=== PATIENT | female | born 1965 | race Two or more races ===

== ENCOUNTER 2018-07-05 13:41 | Emergency (ER) | payer OTHER ==
[~2018-07-05] VITALS: Ht 157.5 cm; Wt 73.3 kg
[~2018-07-05 13:41] MED LIST: LEVO50TA PO
[2018-07-05 13:54] VITALS: BP 175/80
== END 2018-07-05 15:15 | disposition home or self-care (01) ==
LOC: ED 15:09
DX: R10.30 Lower abdominal pain, unspecified (principal); I10 Essential (primary) hypertension; E03.9 Hypothyroidism, unspecified
CPT/HCPCS: 99281

== ENCOUNTER 2018-07-08 17:57 | Emergency (ER) | payer OTHER ==
[~2018-07-08] VITALS: Ht 157.5 cm; Wt 72.0 kg
[2018-07-08 18:02] VITALS: BP 186/79
== END 2018-07-08 18:43 | disposition home or self-care (01) ==
LOC: ED 18:14
DX: B02.9 Zoster without complications (principal)
CPT/HCPCS: 99283

== ENCOUNTER 2020-02-15 21:01 | Inpatient (IN) | payer OTHER ==
[~2020-02-15] VITALS: Ht 157.5 cm; Wt 77.3 kg
--- NOTE | 2020-02-15 21:30 | NUR ---
THIS IS A 54Y F THAT COMES IN TONIGHT FOR COUGH X5DAYS, DENIES FEVER CHILLS BODY ACHES. PT RA 02 SAT 88%, PT PLACED ON 2L NC, SATS UP TO 94%. JUSTIN.
--- NOTE | 2020-02-15 21:33 | NUR ---
PA AT BEDSIDE TO ASSESS PT AT THIS TIME
[2020-02-15] MEDS ORDERED: ACETAMINOPHEN 500 MG TABLET ONE (21:51)
--- NOTE | 2020-02-15 21:58 | NUR ---
PT MEDICATED PER JUSTIN FINK. LAB AT BEDSIDE AT THIS TIME
[2020-02-15] MEDS ORDERED: ACETAMINOPHEN 500 MG TABLET PO ONE (22:00)
[2020-02-15 22:29] LABS: BASOPHILS % (AUTO) 0 % (0-1); EOSINOPHILS % (AUTO) 0 % (1-7); LYMPHOCYTES # (AUTO) 1.22 x10^3/uL (1-3.4); LYMPHOCYTES % (AUTO) 12 % (22-44); MD NO; MEAN CORPUSCULAR HEMOGLOBIN 28.9 pg (27.0-34.8); MEAN CORPUSCULAR VOLUME 87.6 fL (80-100); MONOCYTES # (AUTO) 0.42 x10^3/uL (0.2-0.8); MONOCYTES % (AUTO) 4 % (2-9); NEUTROPHILS # (AUTO) 8.25 x10^3/uL (1.8-6.8); NEUTROPHILS % (AUTO) 83 % (42-75); PLATELET COUNT 305 x10^3/uL (130-400); RED BLOOD COUNT 4.92 x10^6/uL (3.82-5.3); RED CELL DISTRIBUTION WIDTH 14.1 % (9.6-15.2)
[2020-02-15 22:31] LABS: ALANINE AMINOTRANSFERASE 80 U/L (12-78); ALBUMIN 3.1 g/dL (3.4-5.0); ANION GAP 11 mmol/L (5-15); CALCIUM 8.3 mg/dL (8.5-10.1); CHLORIDE 98 mmol/L (98-107); CREATININE 0.67 mg/dL (0.55-1.02)
[2020-02-15 22:34] LABS: ALKALINE PHOSPHATASE 102 U/L (45-117); BILIRUBIN,TOTAL 0.4 mg/dL (0.2-1.0); TOTAL PROTEIN 7.8 g/dL (6.4-8.2)
[2020-02-15] MEDS ORDERED: DOXYCYCLINE 100 MG in DEXTROSE 5% 250 ML IV ONE (23:00)
[2020-02-15] MEDS ORDERED: CEFTRIAXONE PMX 1GM/50ML 50 ML IV ONE (23:00)
[2020-02-15] MEDS ORDERED: DOXYCYCLINE 100 MG in DEXTROSE 5% 250 ML IV SCH (23:00)
[2020-02-15] MEDS ORDERED: CEFTRIAXONE PMX 1GM/50ML 50 ML ONE (23:08)
--- NOTE | 2020-02-15 23:38 | NUR ---
REPORT TO FLOOR RN, ALL QUESTIONS ADDRESSED, PT READY TO TRANSFER TO FLOOR
[2020-02-16] MEDS ORDERED: PHARMACY MAY ADJ FOR RENAL FX MC PRN
[2020-02-16] MEDS ORDERED: BISACODYL 10 MG SUPP PR PRN
[2020-02-16] MEDS ORDERED: POTASSIUM CHLORIDE 20 MEQ TAB.ER.PRT PO ONE
[2020-02-16] MEDS ORDERED: POLYETHYLENE GLYCOL 17 GM PACKET PO PRN
[2020-02-16] MEDS ORDERED: DOXYCYCLINE 100 MG in DEXTROSE 5% 250 ML IV SCH
[2020-02-16] MEDS ORDERED: hydrALAzine 20 MG/ML, 1ML IVPush PRN
[2020-02-16] MEDS ORDERED: METO50TA6 PO (00:45)
[2020-02-16 00:53] VITALS: BP 142/66
[2020-02-16] MEDS: NS + 20MEQ KCL 1,000 ML IV SCH ×2 (02:16→22:01)
[2020-02-16] MEDS: HEPARIN 5,000 UNITS/ML, 1ML SQ SCH ×3 (02:18→18:46)
[2020-02-16 04:58] LABS: BASOPHILS # (AUTO) 0.03 x10^3/uL (0-0.1); BASOPHILS % (AUTO) 0 % (0-1); EOSINOPHILS # (AUTO) 0.02 x10^3/uL (0-0.4); EOSINOPHILS % (AUTO) 0 % (1-7); LYMPHOCYTES # (AUTO) 1.77 x10^3/uL (1-3.4); LYMPHOCYTES % (AUTO) 20 % (22-44); MD NO; MEAN CORPUSCULAR HGB CONC 32.7 g/dL (32.4-35.8); MEAN CORPUSCULAR VOLUME 88.6 fL (80-100); MONOCYTES % (AUTO) 6 % (2-9); NEUTROPHILS # (AUTO) 6.74 x10^3/uL (1.8-6.8); NEUTROPHILS % (AUTO) 74 % (42-75); PLATELET COUNT 314 x10^3/uL (130-400); RED BLOOD COUNT 4.71 x10^6/uL (3.82-5.3); RED CELL DISTRIBUTION WIDTH 13.9 % (9.6-15.2)
[2020-02-16 05:02] LABS: ALBUMIN 2.8 g/dL (3.4-5.0); ANION GAP 7 mmol/L (5-15); CALCIUM 8.2 mg/dL (8.5-10.1); CHLORIDE 101 mmol/L (98-107)
[2020-02-16 05:06] LABS: ALANINE AMINOTRANSFERASE 68 U/L (12-78); ALKALINE PHOSPHATASE 93 U/L (45-117); BILIRUBIN,TOTAL 0.5 mg/dL (0.2-1.0); CREATININE 0.58 mg/dL (0.55-1.02); TOTAL PROTEIN 7.2 g/dL (6.4-8.2)
[2020-02-16 07:30] VITALS: BP 122/63
[2020-02-16] MEDS: SENNA/DOCUSATE TABLET PO SCH (09:00)
[2020-02-16] MEDS: POTASSIUM CHLORIDE 20 MEQ TAB.ER.PRT PO SCH ×2 (10:35→13:26)
[2020-02-16] MEDS: AZITHROMYCIN 500 MG in SODIUM CHLORIDE 0.9% 250 ML IV SCH (10:36)
[2020-02-16 15:59] VITALS: BP 134/81
[2020-02-16 19:51] VITALS: BP 138/79
[2020-02-16] MEDS: CEFTRIAXONE PMX 1GM/50ML 50 ML IV SCH (22:02)
[2020-02-17] MEDS: HEPARIN 5,000 UNITS/ML, 1ML SQ SCH ×3 (02:18→17:13)
[2020-02-17 02:19] VITALS: BP 126/68
[2020-02-17 05:24] LABS: BASOPHILS # (AUTO) 0.02 x10^3/uL (0-0.1); BASOPHILS % (AUTO) 0 % (0-1); EOSINOPHILS # (AUTO) 0.09 x10^3/uL (0-0.4); EOSINOPHILS % (AUTO) 1 % (1-7); LYMPHOCYTES # (AUTO) 2.16 x10^3/uL (1-3.4); LYMPHOCYTES % (AUTO) 20 % (22-44); MD NO; MEAN CORPUSCULAR HEMOGLOBIN 29.1 pg (27.0-34.8); MEAN CORPUSCULAR HGB CONC 32.8 g/dL (32.4-35.8); MEAN CORPUSCULAR VOLUME 88.8 fL (80-100); MEAN PLATELET VOLUME 9.3 fL (7.4-10.4); MONOCYTES # (AUTO) 0.79 x10^3/uL (0.2-0.8); MONOCYTES % (AUTO) 7 % (2-9); NEUTROPHILS # (AUTO) 7.64 x10^3/uL (1.8-6.8); NEUTROPHILS % (AUTO) 71 % (42-75); PLATELET COUNT 358 x10^3/uL (130-400); RED BLOOD COUNT 4.53 x10^6/uL (3.82-5.3); RED CELL DISTRIBUTION WIDTH 14.4 % (9.6-15.2)
[2020-02-17 05:28] LABS: ALBUMIN 2.8 g/dL (3.4-5.0); ANION GAP 7 mmol/L (5-15); CALCIUM 8.5 mg/dL (8.5-10.1); CHLORIDE 104 mmol/L (98-107)
[2020-02-17 05:32] LABS: ALANINE AMINOTRANSFERASE 65 U/L (12-78); ALKALINE PHOSPHATASE 98 U/L (45-117); BILIRUBIN,TOTAL 0.4 mg/dL (0.2-1.0); TOTAL PROTEIN 7.2 g/dL (6.4-8.2)
[2020-02-17 07:33] VITALS: BP 135/79
[2020-02-17] MEDS: AZITHROMYCIN 500 MG in SODIUM CHLORIDE 0.9% 250 ML IV SCH (09:31)
[2020-02-17] MEDS: SENNA/DOCUSATE TABLET PO SCH (09:32)
[2020-02-17] MEDS: ACETAMINOPHEN 325 MG TABLET PO PRN ×2 (09:32→18:26)
[2020-02-17 13:30] VITALS: BP 136/68
[2020-02-17] MEDS: ONDANSETRON 2MG/ML, 2ML IVPush PRN (16:03)
[2020-02-17] MEDS: NS + 20MEQ KCL 1,000 ML IV SCH (16:03)
[2020-02-17 19:51] VITALS: BP 133/79
[2020-02-17] MEDS: CEFTRIAXONE PMX 1GM/50ML 50 ML IV SCH (22:12)
[2020-02-17] MEDS ORDERED: PHARMACY MAY ADJ FOR RENAL FX MC PRN (22:30)
[2020-02-17] MEDS: HYDROXYCHLOROQUINE 200 MG TABLET PO SCH (22:45)
[2020-02-17] MEDS: ASCORBIC ACID 500 MG TABLET PO SCH (22:45)
[2020-02-18 01:47] VITALS: BP 142/86
[2020-02-18] MEDS: HEPARIN 5,000 UNITS/ML, 1ML SQ SCH ×3 (02:13→17:17)
[2020-02-18] MEDS: ACETAMINOPHEN 325 MG TABLET PO PRN ×2 (02:14→21:19)
[2020-02-18 06:32] VITALS: BP 143/83
[2020-02-18] MEDS: AZITHROMYCIN 500 MG in SODIUM CHLORIDE 0.9% 250 ML IV SCH (09:32)
[2020-02-18] MEDS: SENNA/DOCUSATE TABLET PO SCH (09:33)
[2020-02-18] MEDS: ASCORBIC ACID 500 MG TABLET PO SCH ×2 (09:33→20:18)
[2020-02-18] MEDS: ZINC SULFATE 220 MG CAPSULE PO SCH (09:33)
[2020-02-18] MEDS: HYDROXYCHLOROQUINE 200 MG TABLET PO SCH (09:33)
[2020-02-18] MEDS: NS + 20MEQ KCL 1,000 ML IV SCH (12:07)
[2020-02-18 13:41] VITALS: BP 118/73
[2020-02-18] MEDS ORDERED: ASCORBIC ACID 500 MG TABLET PO SCH (17:00)
[2020-02-18 18:50] VITALS: BP 133/86
[2020-02-18] MEDS: CEFTRIAXONE PMX 1GM/50ML 50 ML IV SCH (21:19)
[2020-02-19 00:45] VITALS: BP 127/76
[2020-02-19] MEDS: HEPARIN 5,000 UNITS/ML, 1ML SQ SCH ×3 (02:21→17:22)
[2020-02-19 06:23] VITALS: BP 136/79
[2020-02-19] MEDS: SENNA/DOCUSATE TABLET PO SCH (08:32)
[2020-02-19] MEDS: ASCORBIC ACID 500 MG TABLET PO SCH ×2 (08:33→22:11)
[2020-02-19] MEDS: AZITHROMYCIN 500 MG in SODIUM CHLORIDE 0.9% 250 ML IV SCH (08:33)
[2020-02-19] MEDS: ZINC SULFATE 220 MG CAPSULE PO SCH (08:33)
[2020-02-19 12:11] VITALS: BP 152/81
[2020-02-19] MEDS: NS + 20MEQ KCL 1,000 ML IV SCH (12:14)
[2020-02-19 13:16] VITALS: BP 132/76
[2020-02-19 19:55] VITALS: BP 152/79
[2020-02-19] MEDS: CEFTRIAXONE PMX 1GM/50ML 50 ML IV SCH (22:10)
[2020-02-20 01:28] VITALS: BP 134/81
[2020-02-20] MEDS: HEPARIN 5,000 UNITS/ML, 1ML SQ SCH ×3 (01:35→18:02)
[2020-02-20 08:13] VITALS: BP 147/82
[2020-02-20] MEDS: ASCORBIC ACID 500 MG TABLET PO SCH ×2 (08:21→20:35)
[2020-02-20] MEDS: NS + 20MEQ KCL 1,000 ML IV SCH (08:21)
[2020-02-20] MEDS: AZITHROMYCIN 500 MG in SODIUM CHLORIDE 0.9% 250 ML IV SCH (08:21)
[2020-02-20] MEDS: ZINC SULFATE 220 MG CAPSULE PO SCH (08:21)
[2020-02-20] MEDS: SENNA/DOCUSATE TABLET PO SCH (08:24)
[2020-02-20 12:52] VITALS: BP 146/79
[2020-02-20] MEDS: ACETAMINOPHEN 325 MG TABLET PO PRN (16:24)
[2020-02-20 18:50] VITALS: BP 170/84
[2020-02-20 20:33] VITALS: BP 161/83
[2020-02-20] MEDS: CEFTRIAXONE PMX 1GM/50ML 50 ML IV SCH (20:35)
[2020-02-21 01:04] VITALS: BP 148/84
[2020-02-21] MEDS: HEPARIN 5,000 UNITS/ML, 1ML SQ SCH ×3 (03:36→17:01)
[2020-02-21] MEDS: NS + 20MEQ KCL 1,000 ML IV SCH (03:36)
[2020-02-21 06:27] LABS: ANION GAP 6 mmol/L (5-15); CALCIUM 8.8 mg/dL (8.5-10.1); CHLORIDE 103 mmol/L (98-107)
[2020-02-21 06:28] LABS: CREATININE 0.63 mg/dL (0.55-1.02)
[2020-02-21 06:30] LABS: BASOPHILS # (AUTO) 0.03 x10^3/uL (0-0.1); BASOPHILS % (AUTO) 0 % (0-1); EOSINOPHILS # (AUTO) 0.21 x10^3/uL (0-0.4); EOSINOPHILS % (AUTO) 3 % (1-7); LYMPHOCYTES # (AUTO) 1.95 x10^3/uL (1-3.4); LYMPHOCYTES % (AUTO) 24 % (22-44); MD NO; MEAN CORPUSCULAR HEMOGLOBIN 29.1 pg (27.0-34.8); MEAN CORPUSCULAR HGB CONC 32.9 g/dL (32.4-35.8); MEAN CORPUSCULAR VOLUME 88.4 fL (80-100); MONOCYTES # (AUTO) 0.61 x10^3/uL (0.2-0.8); MONOCYTES % (AUTO) 8 % (2-9); NEUTROPHILS # (AUTO) 5.33 x10^3/uL (1.8-6.8); NEUTROPHILS % (AUTO) 66 % (42-75); PLATELET COUNT 501 x10^3/uL (130-400); RED CELL DISTRIBUTION WIDTH 14.1 % (9.6-15.2)
[2020-02-21] MEDS: AZITHROMYCIN 500 MG in SODIUM CHLORIDE 0.9% 250 ML IV SCH (08:55)
[2020-02-21] MEDS: ASCORBIC ACID 500 MG TABLET PO SCH ×2 (08:55→21:31)
[2020-02-21] MEDS: ZINC SULFATE 220 MG CAPSULE PO SCH (08:56)
[2020-02-21] MEDS: SENNA/DOCUSATE TABLET PO SCH (08:56)
[2020-02-21 10:27] VITALS: BP 146/85
[2020-02-21 12:18] VITALS: BP 145/81
[2020-02-21] MEDS: ONDANSETRON 2MG/ML, 2ML IVPush PRN (17:01)
[2020-02-21] MEDS: ACETAMINOPHEN 325 MG TABLET PO PRN (17:02)
[2020-02-21 17:34] LABS: HCT (SEDRATE) 42.5 % (34.6-47.8)
[2020-02-21 17:49] LABS: C-REACTIVE PROTEIN, QUANT 2.9 mg/dL (0.02-0.49)
[2020-02-21 18:10] LABS: D-DIMER (DIC) 0.77 ug/mlFEU (0.00-0.52); PROTIME 10.1 Seconds (9.6-11.5)
[2020-02-21] MEDS: CEFTRIAXONE PMX 1GM/50ML 50 ML IV SCH (21:31)
[2020-02-21 21:34] VITALS: BP 154/86
[2020-02-22] MEDS: NS + 20MEQ KCL 1,000 ML IV SCH (00:44)
[2020-02-22 00:45] VITALS: BP 129/74
[2020-02-22] MEDS: HEPARIN 5,000 UNITS/ML, 1ML SQ SCH ×2 (00:47→08:52)
[2020-02-22 06:53] LABS: BASOPHILS # (AUTO) 0.16 x10^3/uL (0-0.1); BASOPHILS % (AUTO) 2 % (0-1); EOSINOPHILS # (AUTO) 0.18 x10^3/uL (0-0.4); EOSINOPHILS % (AUTO) 2 % (1-7); LYMPHOCYTES # (AUTO) 2.73 x10^3/uL (1-3.4); LYMPHOCYTES % (AUTO) 29 % (22-44); MD NO; MEAN CORPUSCULAR HEMOGLOBIN 29.1 pg (27.0-34.8); MEAN CORPUSCULAR VOLUME 88.2 fL (80-100); MEAN PLATELET VOLUME 8.9 fL (7.4-10.4); MONOCYTES # (AUTO) 0.55 x10^3/uL (0.2-0.8); MONOCYTES % (AUTO) 6 % (2-9); NEUTROPHILS % (AUTO) 61 % (42-75); PLATELET COUNT 528 x10^3/uL (130-400)
[2020-02-22 07:02] LABS: ANION GAP 7 mmol/L (5-15); CALCIUM 9.1 mg/dL (8.5-10.1); CHLORIDE 103 mmol/L (98-107)
[2020-02-22 08:00] VITALS: BP 145/80
[2020-02-22] MEDS: ASCORBIC ACID 500 MG TABLET PO SCH (08:51)
[2020-02-22] MEDS: SENNA/DOCUSATE TABLET PO SCH (08:51)
[2020-02-22] MEDS: AZITHROMYCIN 500 MG in SODIUM CHLORIDE 0.9% 250 ML IV SCH (08:51)
[2020-02-22] MEDS: ZINC SULFATE 220 MG CAPSULE PO SCH (08:52)
[2020-02-22] MEDS ORDERED: AMOX1TAB64 PO (12:53)
[2020-02-22] MEDS ORDERED: ASCO-96 PO (12:53)
[2020-02-22] MEDS ORDERED: ASPI-515 PO (12:53)
[2020-02-22] MEDS ORDERED: ACET325T26 PO (12:53)
[2020-02-22] MEDS ORDERED: CHOL40002 PO (12:53)
[2020-02-22] MEDS ORDERED: ZINC220C7 PO (12:53)
[2020-02-22 14:00] VITALS: BP 135/72
[2020-02-22 14:36] VITALS: BP 151/73
== END 2020-02-22 16:35 | disposition home health service (06) | DRG 177 ==
LOC: ED 21:28 → EDIP 23:19 → 4NW 02-16 00:17
PROVIDERS: ADMIT Internal Medicine; ATTEND Hospitalist
DX: U07.1 COVID-19 (principal); J15.9 Unspecified bacterial pneumonia; E87.1 Hypo-osmolality and hyponatremia; E03.9 Hypothyroidism, unspecified; E87.6 Hypokalemia; I10 Essential (primary) hypertension; R09.02 Hypoxemia; R73.9 Hyperglycemia, unspecified
CPT/HCPCS: 36415; 71045; 80048; 80053; 82728; 83036; 83605; 83615; 83735; 84145; 84443; 85025; 85049; 85379; 85384; 85610; 85651; 85730; 86140; 87040; 87070; 87205; 93308; 93321; 93325; 96374; G0378; J0456; J0696; J1644; J2405; J3480; J7060; J7050; U0001